=== PATIENT | female | born 1960 | race Caucasian/White ===

== ENCOUNTER → 2020-01-17 13:42 | Outpatient (CLI) | payer OTHER, SELFPAY ==
--- NOTE | ~2020-01-17 | XR_ITS ---
XR shoulder RT min 2V DATE: 01/17/2020 14:07 INDICATION: Right shoulder pain TECHNIQUE: 4 views COMPARISON: None FINDINGS: No fracture or dislocation, periosteal reaction or bone destruction or abnormal soft tissue calcification. Normal alignment at the acromioclavicular and glenohumeral joints. IMPRESSION: No significant abnormality of the right shoulder Reviewed, dictated and finalized at location A.
--- NOTE | ~2020-01-17 | XR_ITS ---
XR lumbar spine 2-3V DATE: 01/17/2020 14:07 INDICATION: Back pain TECHNIQUE: AP, lateral, coned lateral lumbosacral views COMPARISON: None FINDINGS: There is mild rotatory levoscoliosis of the lumbar spine. Diffuse osteopenia. No fracture or bone destruction or spondylolisthesis is evident. There is mild degenerative disc dise ase. There is degenerative change at the apophyseal joints of the lower lumbar and lumbosacral area. IMPRESSION: Osteopenia Moderate rotatory levoscoliosis Mild to moderate degenerative changes Reviewed, dictated and finalized at location A.
== END ==
PROVIDERS: PCP Family Medicine; Visit Provider Family Medicine
DX: M25.511 Pain in right shoulder (principal); M85.88 Other specified disorders of bone density and structure, other site; M51.36 Other intervertebral disc degeneration, lumbar region
CPT/HCPCS: 72100; 73030

== ENCOUNTER 2021-02-15 15:34 | Emergency (ER) | payer OTHER, SELFPAY ==
--- NOTE | ~2021-02-15 | XR_ITS ---
EXAMINATION: XR foot RT min 3V DATE: 02/15/2021 15:56 INDICATION: Right foot pain, initial encounter TECHNIQUE: Dorsoplantar, lateral, and 2 oblique views of the affected foot were obtained. COMPARISON: None. FINDINGS: There is an acute, traumatic, transverse, nondisplaced fracture in the midshaft of the thir d metatarsal. There is a possible nondisplaced fracture in the proximal/mid shaft of the second metat arsal. No additional acute osseous abnormality is identified. There is mild osteoarthritis of several interphalangeal joints. A plantar calcaneal enthesophyte is noted. There is dorsal soft tissue swell ing of the foot. IMPRESSION: 1. Acute third metatarsal fracture and possible second metatarsal fracture. Reviewed, dictated and finalized at location B.
[2021-02-15 15:45] VITALS: BP 149/74; PULSE 71; RESP 16; TEMP 36.3; O2SAT 100
--- NOTE | 2021-02-15 15:47 | ED.LOWEXIN ---
HPI - Extremity Injury (Lower) General Chief Complaint: Extremity Injury, Lower Stated Complaint: rt foot swollen Time Seen by Provider: 02/15/21 15:47 Source: patient and RN notes reviewed History of Present Illness HPI Narrative: Patient is a 6-year-old female who presents the urgent care with complaints of right foot swelling and pain. Patient states that she was working at [employer] on Thursday and was attempting to help a customer out of the bathroom who was riding a motorized scooter. Patient states that she hit her foot on the scooter but he did not roll over her foot. Patient states that she has been taking Aleve for the pain. No other acute complaints or injuries. No acute distress noted. Patient aware of the plan of care. Some parts of this dictation were generated by voice recognition software and may contain typographical and/or grammatical inaccuracies. Related Data Home Medications Medication Instructions Recorded Confirmed No Home Medications 02/15/21 02/15/21 Allergies Allergy/AdvReac Type Severity Reaction Status Date / Time amoxicillin AdvReac Unknown STOMACH Verified 02/15/21 15:44 ACHE cyclobenzaprine AdvReac Unknown CONSTIPATION Verified 02/15/21 15:44 . STOMACH ACHE, BLOATING ibuprofen AdvReac Unknown STOMACH Verified 02/15/21 15:44 ACHE tramadol AdvReac Unknown NAUSEA Verified 02/15/21 15:44 Review of Systems Review of Systems: CONSTITUTIONAL: Denies fever, chills, or sweats. EYES: Denies visual changes, redness, or discharge. ENT: Denies rhinorrhea, congestion, sore throat, or otalgia. CARDIOVASCULAR: Denies chest pain, palpitations, or edema. RESPIRATORY: Denies cough or dyspnea. GASTROINTESTINAL: Denies abdominal pain, nausea, vomiting, or diarrhea. GENITOURINARY: Denies dysuria or hematuria. SKIN: Denies rash or itching. MUSCULOSKELETAL: Reports of right foot pain, swelling and bruising NEUROLOGIC: Denies headache, numbness, or weakness. All other systems reviewed are negative, except as documented in HPI. [facility] Surgical History Surgical History H/O rotator cuff surgery L shoulder Family History Family History Mother Hypertension Grandparent Family history of Alzheimer's disease Father Family history of diabetes mellitus in first degree relative Social History Social History (Updated 03/13/20 @ 10:37 by Nupur Paredes) Social History: Single Smoking packs per day: 1 Smoking cigarettes per day: 20.0 Years smoked: 25 Smoking pack-years: 25.00 Smoking status: Former smoker Tobacco type: cigarettes Second hand tobacco smoke exposure: No Smoking end date: 07/06/99 Alcohol intake: never Substance use: current Substance use type: marijuana Gender identity (if verbalized by the patient): Female Comments At the time of my signature, I reviewed and agree with the nursing past medical, surgical, social, and family history. There is no relevant family history pertinent to the patient complaint. Exam Narrative: GENERAL: This is a well-nourished, well-developed patient, in no apparent distress. HEAD: normocephalic, atraumatic. EYES: PERRL. Sclera clear/white. Vision is grossly intact. EARS: External ears normal NOSE: External nose normal with no obvious nasal discharge, nares without redness, no rhinorrhea. THROAT: Mucous membranes moist NECK: Neck supple CARDIOVASCULAR: Regular rate and rhythm without murmurs, gallops, or rubs. RESPIRATORY: Clear to auscultation. Breath sounds equal bilaterally. No wheezes, rales, or rhonchi. SKIN: warm, intact with no suspicious lesions or rash, good texture and turgor. NEURO: awake, alert, and oriented to person, place and time. There were no obvious focal neurologic abnormalities. EXTREMITIES: Mild edema and ecchymosis noted to the right distal second through fourth metatarsal sisi
== END 2021-02-15 16:30 | disposition home or self-care (01) ==
PROVIDERS: Emergency Provider Nurse Practitioner Family; PCP Nurse Practitioner Adult Health
DX: S92.334A Nondisplaced fracture of third metatarsal bone, right foot, initial encounter for closed fracture (principal); W22.8XXA Striking against or struck by other objects, initial encounter; Z87.891 Personal history of nicotine dependence; R01.1 Cardiac murmur, unspecified
CPT/HCPCS: 73630; 99214; G0463

== ENCOUNTER 2023-11-10 14:54 | Outpatient (CLI) | payer OTHER, SELFPAY ==
--- NOTE | ~2023-11-10 | XR_ITS ---
EXAM: XR lumbar spine 2-3V DATE: 11/10/2023 15:15 HISTORY: Low back pain, fall 2 weeks ago. COMPARISON: 01/17/2020. FINDINGS: 5 nonrib-bearing lumbar-type vertebral bodies. Pedicles intact. Normal vertebral body alig nment. Vertebral body heights preserved. Moderate scoliosis. Mild multilevel marginal osteophytosis. Moderate disc space narrowing at L5-S1. Mild disc space narrowing at all remaining levels except L3-4 . Decreased mineralization. Moderate mid and lower lumbar facet arthropathy with interspinous narrowi ng. No fracture or dislocation. Minimal atherosclerotic aortic calcifications without evident aneurys m. Incidental note of stable mild anterior wedge deformity at T10 and T11. Suggestion of moderate wed ge deformity at T9, incompletely included in this field of view and not included in the [id number] of the comparison. IMPRESSION: Possible moderate anterior wedge compression fracture at T9, of uncertain age, correlate for pain/ten derness. Consider radiographs of the thoracic spine. Moderate lumbar scoliosis. Multilevel lumbar degenerative disc disease, moderate at L5-S1. Moderate m id and lower lumbar facet arthropathy Reviewed, dictated and finalized at location K. IMPRESSION: Possible moderate anterior wedge compression fracture at T9, of uncertain age, correlate for pain/tenderness. Consider radiographs of the thoracic spine. Moderate lumbar scoliosis. Multilevel lumbar degenerative disc disease, moderat e at L5-S1. Moderate mid and lower lumbar facet arthropathy
== END 2023-11-10 14:55 ==
LOC: MICIMG 14:56
PROVIDERS: PCP Physician Assistant; Visit Provider Physician Assistant
DX: M41.86 Other forms of scoliosis, lumbar region (principal); M51.37 Other intervertebral disc degeneration, lumbosacral region; M47.896 Other spondylosis, lumbar region
CPT/HCPCS: 72100

== ENCOUNTER 2023-11-13 12:07 | Outpatient (CLI) | payer OTHER, SELFPAY ==
--- NOTE | ~2023-11-13 | XR_ITS ---
XR thoracic spine 3V DATE: 11/13/2023 12:24 INDICATION: Thoracic back pain TECHNIQUE: AP, lateral, swimmer views COMPARISON: None FINDINGS: There is osteopenia. No fracture, dislocation or bone destruction of the thoracic spine is detected. No paraspinal soft ti ssue thickening. There is mild scoliosis and mild degenerative spurring. IMPRESSION: Osteopenia Mild degenerative spurring Mild thoracic scoliosis Reviewed, dictated and finalized at location A.
== END 2023-11-13 12:08 ==
PROVIDERS: PCP Physician Assistant; Visit Provider Physician Assistant
DX: M41.84 Other forms of scoliosis, thoracic region (principal); M51.34 Other intervertebral disc degeneration, thoracic region; M85.88 Other specified disorders of bone density and structure, other site
CPT/HCPCS: 72072

== ENCOUNTER 2023-11-20 06:59 | Outpatient (CLI) | payer OTHER, SELFPAY ==
--- NOTE | ~2023-11-20 | MR_ITS ---
MRI of the lumbar spine Clinical History: Back pain Technique: Axial T2-weighted images, and sagittal T1-weighted, T2-weighted, and T2 fat-sat images wer e acquired. Findings: There is no fracture or subluxation of the lumbar spine. Vertebral bodies maintain normal h eight and alignment. No bone marrow signal abnormality seen. At L1-L2, there is mild disc bulge and moderate facet arthropathy. No central canal stenosis or defin ite neural foraminal narrowing. At L2-L3, there is disc bulge and moderate facet arthropathy. There is minimal central canal stenosis . There is mild right neural foraminal narrowing. Left foramen preserved. At L3-L4, there is disc bulge and advanced facet arthropathy. There is mild central canal stenosis/th ecal sac compression. There is moderate right neural foraminal narrowing, and mild left neural forami nal narrowing. At L4-L5, there is diffuse disc bulge with severe facet arthropathy. There is moderate central canal stenosis/thecal sac compression. There is moderate bilateral neural foraminal narrowing. At L5-S1, there is disc bulge and advanced facet arthropathy. No central canal stenosis. There is mod erate left neural foraminal narrowing, and minimal right neural foraminal narrowing. Paravertebral soft tissues are unremarkable. Impression: Moderate to advanced degenerative spondylosis, as detailed above. Reviewed, dictated and finalized at [place] [facility]. Impression: Moderate to advanced degenerative spondylosis, as detailed above.
== END 2023-11-20 07:00 ==
LOC: MICIMG 07:02
PROVIDERS: PCP Physician Assistant; Visit Provider Physician Assistant
DX: M47.896 Other spondylosis, lumbar region (principal)
CPT/HCPCS: 72148

== ENCOUNTER 2025-03-21 09:37 | Outpatient (CLI) | payer OTHER, SELFPAY ==
--- OUTSIDE RECORDS SUMMARY | 2024-01-29 05:30 | XMS_ITS ---
Author Organization [facility] Address [address] [place] [address] Care Team Providers Care Car Examiner Name Role Phone Daysi Cadet Primary Care Provider Erickson Quintero Unavailable [phone] ALLERGIES No Known Allergies RESULTS Component Value Reference Range Notes X ray : Lumbar spine 5 views , AP, Lateral, Spot, Flexion and Extension Reviewed date:01/29/2024 11:55:17 AM Interpretation:[id number] Performing Lab: Notes/Report: 1128 REASON FOR REFERRAL Reason DIAGNOSES: back pain , back strain, back contusion eval and treat, exercise, modalities per therapist's discretion; HEP 2x4 Referral [facility] Referring Provider First Name Erickson Referring Provider Last Name Ryann Referring Provider Speciality Orthopedic Surgery Referred Provider Specialty Physical [facility] Referral Priority Routine REASON FOR VISIT Sabrina Villela / Katrin Stephens / , DOI: 10/15/2023 / Claim # [id number], [place] - low back MEDICATIONS Medication SIG (Take, Route, Fr equency, Duration) Notes Start Date End Date Status Methocarbamol Active Meloxicam 15 MG 1 tablet once daily oral with food for 90 days Active VITAL SIGNS BMI 32.94 kg/m2 01/29/2024 Height 63 in 01/29/2024 Weight 186 lbs 01/29/2024 Encounters Encounter Location Date Provider Diagnosis [facility] [address] [place] [address] 01/29/2024 Erickson Garzon Lumbar strain S39.012A ; Lumbar contusion, initial encounter S30.0XXA and Other low back pain M54.59 ASSESSMENTS Encounter Date Diagnosis Assessment Notes Treatment Notes Treatment Clinical Notes 01/29/2024 Lumbar strain (ICD-10 - S39.012A) 01/29/2024 Lumbar contusion, initial encounter (ICD-10 - S30.0XXA) 01/29/2024 Other low back pain (ICD-10 - M54.59) PLAN OF TREATMENT Medication Medication Name Sig Start Date Stop Date Notes Meloxicam 15 MG 1 tablet once daily oral with food for 90 days Referrals Referral Date Details DIAGNOSES: back pain , back strain, back contusion eval and treat, exercise, modalities per therapist's discretion; HEP 2x4 Progress Notes * Examination Category Sub-Category Detail Notes General Examination GENERAL: Patient is a lert and cooperative. She moves about the room without significant difficulty. She does not walk with a list/limp. She does not use a cane/walker to ambulate NECK: No tenderness to pal pation, no spasm. Cervical ROM reduced by 20% in all directions. Mild loss of cervical lordosis NEUROLOGIC: UE neurologic exam r eveals symmetric DTR's, intact sensation, 5+/5+ motor strength. Karlie's sign negative. LE neurologic exam reveals symmetric DTR's, intact sensation, 5+/5+ motor strength. SLR testing negative. No clonus, negative Babinski's sign involving LE's SKIN: No evidence of skin rashes or dermal lesions MUSCULOSKELETAL: Thoracic exam reveal s mild increased kyphosis involving upper thorax and cervicothoracic junction. Lumbar exam reveals mild tension, but no spasm. No scar. Lumbar ROM reveals FF 120 degrees, EXT 35-40 degrees, SB 50-60 degrees. She can heel and toe walk JOINTS: Hip log roll testing negative. Hip ROM full Consultation Request Notes Referral Date Referring Provider Referred Provider Not es 01/29/2024 Erickson Garzon , DIAGNOSES: b ack pain, back strain, back contusion eval and treat, exercise, modalities per therapist's discretion; HEP 2x4
--- OUTSIDE RECORDS SUMMARY | 2024-02-23 08:43 | XMS_ITS ---
Author Organization [facility] Address [address] [facility] [address] [place] [address] Care Team Providers Care Health Social Work Professor Name Role Phone Daysi Cadet Primary Care Provider Erickson Quintero Unavailable [phone] REASON FOR VISIT Cancellation Encounters Encounter Location Date Provider Diagnosis [facility] [address] [facility] [address] [place] [address] 02/23/2024 Erickson Garzon PLAN OF TREATMENT No Information
--- OUTSIDE RECORDS SUMMARY | 2024-02-24 03:50 | XMS_ITS ---
Author Organization [facility] [address] [place] [address] Care Team Providers Care Used Car Sales Manager Name Role Phone Daysi Cadet Primary Care Provider Erickson Quintero [phone] Encounters Encounter Location Date Provider Diagnosis [facility] [address] [place] [address] 02/24/2024 Erickson Garzon PLAN OF TREATMENT No Information
--- NOTE | 2025-03-21 09:49 | ECHO_ITS ---
Patient Info Name: Paola Harris Age: 64 years : 1960 Gender: Female Ht: 63 in Wt: 189 lbs BSA: 1.99 m2 HR: 67 bpm BP: 130 / 86 mmHg Technical Quality: Good Exam Date: 03/21/2025 10:02 AM Patient Status: O Admit Date: 03/21/2025 Exam Type: CA echo doppler color flow Complete two-dimensional, color flow and Doppler transthoracic echocardiogram is performed. Hospice Coordinator: Donya Enriquez Attending Provider: Chet Yuan Summary 1. Complete two-dimensional, color flow and Doppler transthoracic echocardiogram is performed. 2. Left ventricular chamber dimension is normal. 3. Left ventricular systolic function is normal, estimated at 65-70. 4. There is moderate concentric increased left ventricular wall thickness. 5. The left ventricular diastolic function is grade I diastolic dysfunction. 6. E/e' 11 is mildly elevated. 7. Left atrial chamber dimension is mildly enlarged. 8. The aortic valve is not well visualized. Cannot determine number of aortic valve leaflets. 9. There is moderate aortic valve sclerosis. 10. There is moderate aortic valve stenosis with a peak velocity of 361 cm/s, mean gradient of 34 mmHg, and aortic valve area of 1.0 cm2. 11. There is mild aortic valve regurgitation. 12. There is trace mitral valve regurgitation. 13. No pulmonary hypertension, estimated pulmonary arterial systolic pressure is 32 mmHg. Left Ventricle E/e' 11 is mildly elevated. Left ventricular chamber dimension is normal. Left ventricular systolic function is normal, estimated at 65-70. There is moderate concentric increased left ventricular wall thickness. The left ventricular diastolic function is grade I diastolic dysfunction. Right Ventricle Right ventricular chamber dimension is normal. Right ventricular systolic function is normal and with normal TAPSE 2.2 cm. Left Atria Left atrial chamber dimension is mildly enlarged. Right Atria Right atrial chamber dimension is normal. Aortic Valve The aortic valve is not well visualized. Cannot determine number of aortic valve leaflets. There is moderate aortic valve sclerosis. There is moderate aortic valve stenosis with a peak velocity of 361 cm/s, mean gradient of 34 mmHg, and aortic valve area of 1.0 cm2. There is mild aortic valve regurgitation. Pulmonic Valve There is no pulmonic regurgitation. Mitral Valve There is no mitral valve stenosis. There is trace mitral valve regurgitation. Tricuspid Valve There is no tricuspid valve regurgitation. No pulmonary hypertension, estimated pulmonary arterial systolic pressure is 32 mmHg. Pericardium/Pleural There is no pericardial effusion. Inferior Vena Cava Normal inferior vena cava with >50% collapse upon inspiration consistent with normal right atrial pressure, 5 mmHg. Aorta The aortic root size at the sinus of Valsalva is normal. Left Ventricular Outflow Tract Name Value Normal LVOT 2D LVOT Diameter 2.0 cm LVOT Doppler LVOT Peak Velocity 102 cm/s LVOT Peak Gradient 4 mmHg LVOT Mean Gradient 3 mmHg LVOT VTI 30 cm LVOT VTI/AV VTI Ratio 0.3 LVOT Stroke Volume 92 ml LVOT CO 14.9 l/min LVOT CI 7.5 l/min/m2 Pulmonic Valve Name Value Normal PV Doppler PV Peak Velocity 112 cm/s PV Peak Gradient 5 mmHg Mitral Valve Name Value Normal MV Diastolic Function MV E Peak Velocity 82 cm/s MV A Peak Velocity 102 cm/s MV E/A 0.8 MV Decel Time (PW) 260 ms MV Annular TDI MV E/e' (Septal) 12.7 MV E/e' (Lateral) 9.8 MV E/e' (Average) 11.2 Tricuspid Valve Name Value Normal TV Regurgitation Doppler TR Peak Velocity 262 cm/s TR Peak Gradient 27 mmHg Estimated PAP/RSVP RA Pressure 5 mmHg <=5 PA Systolic Pressure 32 mmHg <36 RV Systolic Pressure 32 mmHg <36 TV Annular TDI TV Lateral Eli s' Velocity 11.6 cm/s >=9.5 Aorta Name Value Normal Ascending Aorta Ao Root Diameter (MM) 3.0 cm Ao Root Diam Index (MM) 1.5 cm/m2 Aortic Valve Name Value Normal AV Doppler AV Peak Velocity 361 cm/s AV Peak Gradient 52 mmHg AV Mean Gradient 34 mmHg AV VTI 91 cm AV Area (Cont Eq VTI) 1.0 cm2 >=3.0 AV Area (Cont Eq Albert) 0.9 cm2 AV DI (Albert) 0.28 AV Regurgitation 2D LVOT Area 3.1 cm2 Ventricles Name Value Normal LV Dimensions 2D/MM IVS Diastolic Thickness (2D) 1.3 cm 0.6-1.0 LVID Diastole (2D) 3.8 cm 3.8-5.2 LVIW Diastolic Thickness (2D) 1.0 cm 0.6-0.9 LVID Systole (2D) 2.2 cm 2.2-3.5 LVOT Diameter 2.0 cm LV Mass (2D Cubed) 142.50 g 67.00-162.00 LV Mass Index (2D Cubed) 72 g/m2 43-95 Relative Wall Thickness (2D) 0.52 <=0.42 LV Fractional Shortening/Ejection Fraction 2D/MM LV Fractional Shortening (2D) 43 % 27-45 LV EF (2D Teichholz) 75 % LV Diastolic Volume (4C MOD) 83 ml LV EF (4C MOD) 70 % LV Diastolic Volume (2C MOD) 105 ml LV EF (2C MOD) 74 % LV Diastolic Volume (BP MOD) 94 ml 46-106 LV Diastolic Volume Index (BP MOD) 47 ml/m2 29-61 LV Systolic Volume (BP MOD) 27 ml 14-42 LV Systolic Volume Index (BP MOD) 14 ml/m2 8-24 LV EF (BP MOD) 71 % 54-74 LV Diastolic Length (4C) 8.1 cm LV Systolic Length (4C) 6.5 cm LV Stroke Volume (4C MOD) 58 ml RV Dimensions 2D/MM RVID Diastole (2D) 3.0 cm 2.1-3.5 Atria Name Value Normal LA Dimensions LA Dimension (MM) 4.1 cm 2.7-3.8 LA Volume (4C A-L) 40 ml LA Volume (BP A-L) 48 ml RA Dimensions RA Systolic Major [place] Length (4C) 4.4 cm 2.2-2.8 RA Area (4C) 12.0 cm2 <=18.0 Report Signatures
--- OUTSIDE RECORDS SUMMARY | 2025-03-21 11:00 | XMS_ITS | Clinical Summary ---
Author Organization [facility] [place] [address] Address [address] [place] [address] Care Team Providers Care [employer]cre[employer]icopter Name Role Phone Unknown, Notinfile Primary Care Provider Unavail able Allergies Active Allergy Reactions Criticality Noted Date Comments Amoxicillin Stomach upset Low 02/24/2020 Medications methylPREDNISol one (MEDROL) 4 mg tablet Take by mouth as directed 7 Active triamcinolone (KENALOG) 0.1 % ointment Apply topically 3 (three) times a day 7 Active Active Problems No known active problems Social History Tobacco Use Types Packs/Day Years Used Date Smoking Tobacco: Never Assessed Comments Unknown Sex and Gender Information Value Date Recorded Sex Assigned at Not on file Legal Sex Female 2:22 PM CDT Gender Identity Not on file Sexual Orientation Not on file Obstetrics History Last Filed Vital Signs Vital Sign Reading Time Taken Comments Blood Pressure 126/76 10/17/2023 5:42 PM CDT Pulse 69 10/17/2023 5:42 PM CDT Temperature 36.3 C (97.3 F) 10/17/2023 5:42 PM CDT Respiratory Rate 18 10/17/2023 5:42 PM CDT Oxygen Saturation 97% 10/17/2023 5:42 PM CDT Inhaled Oxygen Concentration - - Weight 84.4 kg (186 lb) 10/17/2023 5:42 PM CDT Height 160 cm (5' 3) 10/17/2023 5:42 PM CDT Body Mass Index 32.95 10/17/2023 5:42 PM CDT Plan of Treatment Health Maintenance Due Date Last Done Comments Breast Cancer Screening-Mammogram 1960 Cervical Cancer Screening 1960 Colon Cancer Screening-Colonoscopy 1960 Depression Screening 1960 Hepatitis C Screening 1960 DTaP/Tdap/Td Vaccine (1 - Tdap) 1971 Hepatitis B Screening 1978 Regular Well Visit/Exam 18-64 1978 Zoster Vaccine (1 of 2) 2010 Covid-19 Vaccine (2 - 2024-2 6 season) 2025 11/24/2020 Influenza Vaccine (#1) 2025 Pneumococcal vaccine <65 Aged Out No longer eligible based on patient's age to complete this topic Insurance PPO PPO [facility] Care Teams [employer] Relationship Specialty Start Date End Date Unknown, Notinfile PCP - General 10/17/23
--- OUTSIDE RECORDS SUMMARY | 2025-03-21 11:00 | XMS_ITS | Clinical Summary ---
Author Organization [facility] Address [address] [place] [address] Phone Care Team Providers Care Medical Assistant Secretary Name Role Phone Unavailable Primary Care Provider Unavailabl e Social History Tobacco Use Types Packs/Day Years Used Date Smoking Tobacco: Never Assessed Comments Unknown Sex and Gender Information Value Date Recorded Sex Assigned at Not on file Legal Sex Female 2:20 PM CDT Gender Identity Not on file Sexual Orientation Not on file Plan of Treatment Health Maintenance Due Date Last Done Comments Hepatitis C Virus (HCV) Screening 1960 Mammogram 1960 TdaP Immunization 1960 Pap Smear 1981 Cervical Cancer Screening (CCS) 1990 HPV/Cotest 1990 Cologuard 2005 Colonoscopy 2005 Colorectal Cancer Screening 2005 Immunochemical Fecal Occult Blood 2005 Pneumococcal Immunization (5 0+ years) (1 of 1 - PCV) 2010 Zoster Immunization (1 of 2) 2010 SARS-COV-2 Immunization ( - season) 2024 11/24/2020 Influenza Immunization (#1) 2025 Respiratory Syncytial Virus (RSV) Immunization (Adult) (1 - 1-dose 75+ series) 2035 Hepatitis B Immunization Aged Out No longer eligible based on patient's age to complete this topic Human Papillomavirus (HPV) Immunization Aged Out No longer eligible b ased on patient's age to complete this topic Meningococcal Immunization (ACWY) Aged Out No longer eligible based on patient's age to complete this topic Rotavirus Immunization Aged Out No lo nger eligible based on patient's age to complete this topic
--- OUTSIDE RECORDS SUMMARY | 2025-03-21 11:00 | XMS_ITS | Clinical Summary ---
Author Organization [facility] Address [address] [place] [id number] Care Team Providers Care Tobacco Warehouse Agent Name Role Phone Daysi Rivera Primary Care Provider [phone] Social History Tobacco Use Types Packs/Day Years Used Date Smoking Tobacco: Never Assessed Comments Unknown Sex and Gender Information Value Date Recorded Sex Assigned at Not on file Legal Sex Female 1:20 PM CDT Gender Identity Not on file Sexual Orientation Not on file Plan of Treatment Health Maintenance Due Date Last Done Comments Cervical Cancer Screening Pa p Smear (Age 30 to 64) Every 3 Years 1960 Colorectal Cancer Screening Colonoscopy (10 Years) 1960 Annual Physical 1963 Hepatitis C 1978 DTaP, Tdap and Td Vaccines ( 1 - Tdap) 1979 Cervical Cancer Screening Pa p with HPV Testing (Age 30 to 64) Every 5 Years 1990 Cervical Cancer Screening with HPV 1990 Mammogram Screening 2000 Pneumococcal Vaccine: 50+ Ye ars (1 of 1 - PCV) 2010 Zoster Vaccines (1 of 2) 2010 COVID-19 Vaccine (2 - 2024-2 6 season) 2025 11/24/2020 RSV Immunization or 60+ Years (1 - 1-dose 75+ series) 2035 Meningococcal B Vaccine Aged Out No l onger eligible based on patient's age to complete this topic Meningococcal Vaccine Aged Out No sangita maria elena eligible based on patient's age to complete this topic RSV Immunizations Under 20 Months Aged Out No longer eligible based on patient's age to complete this topic Insurance [employer] Care Teams Tobacco Warehouse Agent Relationship Specialty Start Date End Date Daysi Rivera PA PCP - General PHYSICIAN CHILD CARE SITTER 03/23/24
--- OUTSIDE RECORDS SUMMARY | 2025-03-21 11:00 | XMS_ITS | Patient Health Record ---
Author Organization [facility], Address [address] [place] [address] Care Team Providers Care Adjudication Specialist Name Role Phone Daysi Cadet Primary Care Provider Erickson Quintero Unavailable [phone] ALLERGIES No Known Allergies REASON FOR REFERRAL No Information MEDICATIONS Medication SIG (Take, Route, Fr equency, Duration) Notes Start Date End Date Status Methocarbamol Active Meloxicam 15 MG 1 tablet once daily oral with food for 90 days Active PLAN OF TREATMENT No Information Insurance Providers Payer Name Payer Address Payer Phone Subscriber Number Group Number Insured Name Patient Relationship to Insured Coverage Start Date Coverage End Date CAPPTURE Claims Services [facility] [address] [address] [place] [phone] [id number] Paola Harris Self - patient is the insured 4 MEDICAL (GENERAL) HISTORY Medical History History ICD Code Arthritis Back pain Did not answer question regarding h/o em otional/psychiatric disorder Surgical History Surgery Date(Month/Year) Hemorrhoid 1999 L. rotator cuff 2018
--- OUTSIDE RECORDS SUMMARY | 2025-03-21 11:00 | XMS_ITS | Clinical Summary ---
Author Organization [facility] Address [address] [place] [address] Care Team Providers Care Welder Assembler Name Role Phone Alex Colin MD Primary Care Provider [phone] Source Comments [facility],non-owned Affiliates and Associated Physician Practices is amultiple site organization consisting of ambulatory clinics and hospital sitesin [place], [place], [place] and [place]. This disclosure is being madepursuant to the Care Everywhere program and may not contain all information available regarding this patient. Last updated 18.[facility] Allergies No known active allergies Medications * Be aware that medications may not be up to date on this document. Alwaysverify current medications with the patient. triamcinolone acetonide (KENALOG) 0.1 % ointmentIndicat ions:Wasp sting, accidental or unintentional, initial encounter Apply to affected area 3 times daily 15 g 01/07/2017 Active methylPREDNISol one (MEDROL DOSEPAK) 4 MG tabletIndicatio ns:Wasp sting, accidental or unintentional, initial encounter Take by mouth as directed Use dose pack of 4mg tabs, start 24 mg/day, taper by 4mg/day over 6 days per pkg instructions. Take with food. 1 Each 01/07/2017 Active Social History Tobacco Use Types Packs/Day Years Used Date Smoking Tobacco: Former Smokeless Tobacco: Never Comments Unknown Sex and Gender Information Value Date Recorded Sex Assigned at Not on file Legal Sex Female 5:15 PM CDT Gender Identity Not on file Sexual Orientation Not on file Last Filed Vital Signs Vital Sign Reading Time Taken Comments Blood Pressure 133/84 01/07/2017 5:24 PM CDT Pulse 90 01/07/2017 5:24 PM CDT Temperature 36.9 C (98.4 F) 01/07/2017 5:24 PM CDT Respiratory Rate 20 01/07/2017 5:24 PM CDT Oxygen Saturation 98% 01/07/2017 5:24 PM CDT Inhaled Oxygen Concentration - - Weight 81.6 kg (180 lb) 01/07/2017 5:24 PM CDT Height 160 cm (5' 3) 01/07/2017 5:24 PM CDT Body Mass Index 31.89 01/07/2017 5:24 PM CDT Plan of Treatment Health Maintenance Due Date Last Done Comments COLOGUARD (AGES 45-75) - COL ON CA SCREENING 1960 COLON MONITORING 1960 COLONOSCOPY - COLON CA SCREENING 1960 CT COLONOGRAPHY - COLON CA SCREENING 1960 Colorectal Cancer Screening 1960 FIT - COLON CA SCREENING 1960 FLEX SIG - COLON CA SCREENING 1960 LIPID TESTING 1960 MAMMOGRAM 1960 HIV SCREENING 1975 HEPATITIS C SCREENING 05/22/1978 DTAP/TDAP/TD VACCINES (1 - Tdap) 1979 PNEUMOCOCCAL VACCINE 50+ (1 of 1 - PCV) 2010 ZOSTER VACCINE (1 of 2) 2010 DEPRESSION SCREENING 07/06/2024 COVID-19 VACCINE ( - 2023-2 5 season) 2025 INFLUENZA VACCINE (#1) 2025 Respiratory Syncytial Virus (RSV) Vaccine Pt: or over 60 yrs (1 - 1-dose 75+ series) 2035 HEPATITIS B VACCINE Aged Out No longe r eligible based on patient's age to complete this topic HIB VACCINE Aged Out No longer eligi ble based on patient's age to complete this topic HPV VACCINE Aged Out No longer eligi ble based on patient's age to complete this topic MENINGOCOCCAL (Group B) VACC INE SHARED DECISION-MAKING Aged Out No longer eligibl e based on patient's age to complete this topic MENINGOCOCCAL GROUPS A/C/Y/W VACCINE Aged Out No longer eligible b ased on patient's age to complete this topic Insurance [facility] Care Teams Welder Assembler Relationship Specialty Start Date End Date Alex Colin MD [address] [facility] [address] [place] [address] PCP - General Internal Medicine 01/07/17
== END 2025-03-21 09:38 | disposition home or self-care (01) ==
LOC: ANHCARD 09:38
PROVIDERS: PCP Family Medicine; Visit Provider Family Medicine
DX: I34.0 Nonrheumatic mitral (valve) insufficiency (principal); R01.1 Cardiac murmur, unspecified; I51.89 Other ill-defined heart diseases; I35.8 Other nonrheumatic aortic valve disorders; I35.0 Nonrheumatic aortic (valve) stenosis; I35.1 Nonrheumatic aortic (valve) insufficiency
CPT/HCPCS: 93306